=== PATIENT | female | born 1975 | race Caucasian/White ===

== ENCOUNTER → 2021-03-22 | Outpatient (CLI) | payer OTHER ==
--- NOTE | 2021-03-22 08:42 | RAD ---
EXAM: Thyroid sonogram. HISTORY: Thyroid nodule. TECHNIQUE: Sonographic imaging the thyroid was performed. COMPARISON: None. FINDINGS: The right thyroid lobe measures 6.0 x 2.0 x 1.8 cm. The left thyroid lobe measures 5.9 x 1. 9 x 1.5 cm. The thyroid isthmus measures 4 mm. The thyroid parenchyma is diffusely heterogeneous and hypervascular. There is a solid hypoechoic nodule with eccentric internal echogenic component along t he superior right aspect of the thyroid isthmus measuring 1.6 x 0.7 x 0.4 cm. No additional measurabl e nodule is seen. IMPRESSION: 1. Heterogeneously enlarged and hypervascular thyroid. This can be seen with thyroiditis. 2. 1.6 cm solid nodule along the right superior aspect of the thyroid isthmus. This may originate fro m the thyroid. However, the location and sonographic appearance favors a possible lymph node with fat ty hilum. Short-term sonographic follow-up in 6-12 months is recommended. Electronically signed by: Zoe Lakhani MD (03/22/2021 8:39 AM) [id number]
== END ==
LOC: US 07:44
PROVIDERS: ATTEND Physician Assistant
DX: E04.1 Nontoxic single thyroid nodule (principal); E04.8 Other specified nontoxic goiter
CPT/HCPCS: 76536

== ENCOUNTER → 2021-09-27 | Outpatient (CLI) | payer OTHER ==
--- NOTE | 2021-09-28 09:28 | RAD ---
US THYROID History: Thyroid nodule Comparison: 03/22/2021 Technique: Multiple grayscale and color Doppler images of the thyroid gland were obtained. Findings: Right thyroid lobe: 5.9 x 1.7 x 1.9 cm. Left thyroid lobe: 6.1 x 1.4 x 1.8 cm. Isthmus: 0.2 cm. The thyroid gland is diffusely heterogeneous and hyperemic. A definite, discrete thyroid nodule is no t identified. There is redemonstration of a hypoechoic nodule superior to the right aspect of the ist hmus measuring 1.9 x 0.7 x 0.4 cm with suggestion of small fatty hilum. This is not significantly audrey nged from comparison. IMPRESSION: 1. Hypoechoic nodule superior to the right thyroid isthmus appears not significantly changed in comp arison is favored to represent lymph node. 2. Diffusely heterogeneous and hyperemic thyroid may represent thyroiditis. ACR Thyroid Imaging, Reporting And Data System (TI-RADS): White Paper Of The ACR TI-RADS Committee. J ournal of the [employer], volume 14, issue 5, pages 587-595 (November 2016). Electronically signed by: Yeyo Najera MD (09/28/2021 9:26 AM) [id number]
== END ==
LOC: US 15:47
PROVIDERS: ATTEND Physician Assistant
DX: E04.1 Nontoxic single thyroid nodule (principal)
CPT/HCPCS: 76536